=== PATIENT | male | born 1950 | race Caucasian/White ===

== ENCOUNTER → 2020-06-27 | Outpatient (CLI) | payer MEDICARE ==
--- NOTE | 2020-06-29 15:29 | CT ---
EXAMINATION TYPE: CT sinus wo con DATE OF EXAM: 06/27/2020 COMPARISON: None HISTORY: Chronic sinusitis, atypical facial pain, left side facial pain, headaches CT DLP: 654.8 mGycm. Automated Exposure Control for Dose Reduction was Utilized. TECHNIQUE: CT scan of the sinuses is performed without contrast, axial images are obtained, coronal r eformatted images are also reviewed. FINDINGS: There is no bony hyperostosis of the sinus [place] or intrasinus calcifications. The right maxillary sinus demonstrates mucosal thickening and mucosal narrowing at the ostiomeatal co mplex. The left maxillary sinus is well aerated and the left ostiomeatal complex is patent. There is mucosal thickening of the ethmoid air cells. The bilateral sphenoid sinuses are well aerated and sphenoid ostia are patent. The bilateral frontal sinuses are well aerated and the frontoethmoidal recesses are patent. The nasal passage is patent bilaterally. 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 There is paradoxical curvature of the left middle turbinate, and of the right middle turbinate mid to posterior portion, without contacting the nasal passage wall. Visualized portion of mastoid air cells show no abnormal opacification. The globes are grossly symme tric. IMPRESSION: 1. Mucosal thickening of the right maxillary sinus with mucosal narrowing at the right ostiomeatal co mplex. 2. Mucosal thickening of the ethmoid air cells. 3. Leftward deviation of the bony nasal septum with 1 mm left-sided nasal spur. 4. Paradoxical curvature of the middle turbinates.
== END | disposition home or self-care (01) ==
LOC: RADCTMAIN 13:07
PROVIDERS: ATTEND Otolaryngology
DX: J34.89 Other specified disorders of nose and nasal sinuses (principal); J32.2 Chronic ethmoidal sinusitis; J32.0 Chronic maxillary sinusitis; J32.9 Chronic sinusitis, unspecified; Z88.0 Allergy status to penicillin
CPT/HCPCS: 70486

== ENCOUNTER 2021-05-04 13:03 | Emergency (ER) | payer MEDICARE ==
--- NOTE | 2021-05-04 14:13 | ED ---
Wound/Laceration HPI - General Chief Complaint: Wound/Laceration Stated Complaint: lac on 3 fingers Time Seen by Provider: 05/04/21 14:04 Source: patient Mode of arrival: ambulatory Limitations: no limitations - History of Present Illness Initial Comments: 71-year-old female presents to emergency department with a chief complaint of a laceration to right finger. States he was using a tremor when he pressed the wrong button and lacerated his right secondary to fourth digit. Reports tetanus is up-to-date. Reports minimal pain at this time. Reports some bleeding which is since resolved. States he has full range of motion of fingers and denies any paresthesias. Denies any alleviating or aggravating factors. - Related Data Home Medications Medication Instructions Recorded Confirmed LORazepam [Lorazepam] 1 mg PO BID 05/28/14 02/23/16 Levothyroxine Sodium [Synthroid] 50 mcg PO DAILY 05/28/14 02/23/16 Nefazodone HCl 150 mg PO BID 05/28/14 02/23/16 Terazosin [Hytrin] 4 mg PO HS 05/28/14 02/23/16 Valsartan [Diovan] 160 mg PO DAILY 05/28/14 02/23/16 Previous Rx's Medication Instructions Recorded HYDROcodone/APAP 7.5-325MG [[place] 1 tab PO Q6HR PRN #28 tab 02/27/16 7.5-325] Levofloxacin [Levaquin] 750 mg PO Q24H #5 tab 02/27/16 Allergies Allergy/AdvReac Type Severity Reaction Status Date / Time Penicillins Allergy Severe Rash/Hives Verified 05/04/21 13:18 Review of Systems ROS Statement: Those systems with pertinent positive or pertinent negative responses have been documented in the HPI. ROS Other: All systems not noted in ROS Statement are negative. Past Medical History Past Medical History: Cancer, GERD/Reflux, Hearing Disorder / Deafness, Hypertension, Liver Disease, Prostate Disorder, Thyroid Disorder Additional Past Medical History / Comment(s): HEPATITIS, SKIN CANCER, DIVERTICULOSIS History of Any Multi-Drug Resistant Organisms: None Reported Past Surgical History: Hernia Repair Additional Past Surgical History / Comment(s): COLONOSCOPY Past Anesthesia/Blood Transfusion Reactions: No Reported Reaction Past Psychological History: Anxiety, Depression Smoking Status: Never smoker Past Alcohol Use History: None Reported Past Drug Use History: None Reported - Past Family History Father Family Medical History: Cancer Additional Family Medical History / Comment(s): MELENOMA General Exam Limitations: no limitations General appearance: alert, in no apparent distress Head exam: Present: atraumatic, normocephalic, normal inspection Eye exam: Present: normal appearance, PERRL, EOMI Pupils: Present: normal accommodation ENT exam: Present: normal exam, normal oropharynx, mucous membranes moist Neck exam: Present: normal inspection, full ROM. Absent: tenderness, lymphadenopathy Respiratory exam: Present: normal lung sounds bilaterally. Absent: respiratory distress Cardiovascular Exam: Present: regular rate, normal heart sounds. Absent: systolic murmur Extremities exam: Present: full ROM (Full range of motion in all the fingers of right hand), tenderness (Some tenderness at the lacerated site), normal capillary refill, other (Palpable ulnar and radial pulses bilaterally. sensation intact in the right hand.). Absent: normal inspection (Superficial laceration to the right second third and fourth digit), pedal edema, joint swelling, calf tenderness Back exam: Present: normal inspection, full ROM. Absent: tenderness Neurological exam: Present: alert, oriented X3 Psychiatric exam: Present: normal affect, normal mood Skin exam: Present: warm, dry, intact, normal color Course Vital Signs 05/04/21 13:17 Temperature 98.2 F Pulse Rate 96 Respiratory 18 Rate Blood Pressure 127/77 O2 Sat by Pulse 94 L Oximetry Procedures - Laceration Laceration #1 Consent Obtained: verbal consent Indication: laceration Site: hand Size (cm): 1 Description: flap, clean Depth: simple, single layer Sedation/Analgesia: none Anesthetic Used: lidocaine 1% Anesthesia Technique: local infiltration Amount (mls): 1 Pre-repair: irrigated extensively, deep structures intact Type of Sutures: nylon Size of Sutures: 4-0 Number of Sutures: 4 Technique: simple, interrupted Patient Tolerated Procedure: well, no complications Laceration #2 Consent Obtained: verbal consent Indication: laceration Site: hand Size (cm): 2 Description: linear, clean Depth: simple, single layer Sedation/Analgesia: none Anesthetic Used: lidocaine 1% Anesthesia Technique: local infiltration Amount (mls): 2 Pre-repair: irrigated extensively Type of Sutures: nylon Size of Sutures: 4-0 Number of Sutures: 4 Technique: simple, interrupted Patient Tolerated Procedure: well, no complications Laceration #3 Consent Obtained: verbal consent Indication: laceration Site: hand Size (cm): 1 Description: linear, clean Depth: simple, single layer Sedation/Analgesia: none Anesthetic Used: lidocaine 1% Anesthesia Technique: local infiltration Amount (mls): 1 Pre-repair: irrigated extensively, deep structures intact Type of Sutures: nylon Size of Sutures: 4-0 Number of Sutures: 3 Technique: simple, interrupted Patient Tolerated Procedure: well, no complications Medical Decision Making - Medical Decision Making 71-year-old male presents to the emergency department with a chief complaint of laceration. He has multiple lacerations and hands which were repaired with a to thomas of 12 sutures. Patient started procedure well. Laceration sites were thoroughly irrigated with saline and Betadine. Tetanus is updated. Patient was advised to return for suture removal. He is otherwise neurovascularly intact in the right hand. Return parameters were thoroughly discussed with patient is understanding and agreeable. Case discussed with physician. Disposition Clinical Impression: Laceration of multiple sites of hand and fingers Disposition: HOME SELF-CARE Condition: Stable Instructions (If sedation given, give patient instructions): Care For Your Stitches (ED), Laceration (DC) Additional Instructions: Please return to the emergency room in 8days to have sutures removed. Please watch for any signs of infection which may include increased pain, swelling, redness, fever or chills. Please return to emergency room for any signs of infection do occur. Please use clean soap and water over the area to prevent scabbing over your stitches. Please leave wound covered for the first 24-48 hours and then leave wound open to air. Please return to the emergency room for any other concerns. Is patient prescribed a controlled substance at d/c from ED?: No Referrals: Jose Martin Vale Jr, DO [Primary Care Provider] - 1-2 days Time of Disposition: 15:21
[2021-05-04] MEDS ORDERED: LIDOCAINE 1% INJ 10MG/ML (20 ML MDV) SQ ONE (14:25)
[2021-05-04] MEDS ORDERED: DIPH,PERTUS(ACELL)TETVAC-LF 0.5 ML VIAL IM ONE (14:26)
[2021-05-04 21:58] VITALS: BP 115/78; PULSE 91; RESP 16; TEMP 98.1
== END 2021-05-04 15:30 | disposition home or self-care (01) ==
LOC: EC 13:03
DX: S61.210A Laceration without foreign body of right index finger without damage to nail, initial encounter (principal); S61.212A Laceration without foreign body of right middle finger without damage to nail, initial encounter; S61.214A Laceration without foreign body of right ring finger without damage to nail, initial encounter; Z23 Encounter for immunization; I10 Essential (primary) hypertension; K21.9 Gastro-esophageal reflux disease without esophagitis; F41.9 Anxiety disorder, unspecified; F32.9 Major depressive disorder, single episode, unspecified; Z85.828 Personal history of other malignant neoplasm of skin; Z88.0 Allergy status to penicillin; W26.8XXA Contact with other sharp object(s), not elsewhere classified, initial encounter
CPT/HCPCS: 90715; 99282; 90471; 12002; J2001

== ENCOUNTER 2022-05-02 23:50 | Emergency (ER) | payer MEDICARE ==
[2022-05-03] MEDS ORDERED: ACETAMINOPHEN TAB 500 MG TAB PO STA ×2 (00:15→00:27)
[2022-05-03] MEDS ORDERED: SODIUM CHLORIDE 0.9% 1,000 ML IV STA (00:15)
[2022-05-03] MEDS ORDERED: SODIUM CHLORIDE 0.9% 500 ML 500 ML IV STA (00:27)
[2022-05-03 00:44] LABS: Basophils % (A) 1 %; Eosinophils # (A) 0.1 k/uL (0-0.7); Eosinophils % (A) 2 %; HCT 41.3 % (39.0-53.0); HGB 14.6 gm/dL (13.0-17.5); Lymphocytes # (A) 1.5 k/uL (1.0-4.8); Lymphocytes % (A) 31 %; MCH 33.3 pg (25.0-35.0); MCHC 35.3 g/dL (31.0-37.0); MCV 94.5 fL (80.0-100.0); Mean Platelet Volume 7.8; Monocytes # (A) 0.3 k/uL (0-1.0); Monocytes % (A) 7 %; Neutrophils # (A) 2.8 k/uL (1.3-7.7); Neutrophils % (A) 57 %; Platelet Count 191 k/uL (150-450); RBC 4.36 m/uL (4.30-5.90); RDW 12.7 % (11.5-15.5); WBC 4.9 k/uL (3.8-10.6)
--- NOTE | 2022-05-03 00:44 | ED ---
General Adult HPI - General Source: patient, EMS Mode of arrival: EMS Limitations: no limitations <Fernando Wagner - Last Filed: 05/03/22 00:31> <Mike Keating - Last Filed: 05/03/22 05:30> - General Chief complaint: Recheck/Abnormal Lab/Rx Stated complaint: headache Time Seen by Provider: 05/03/22 00:02 - History of Present Illness Initial comments: This is a pleasant 72-year-old male who presents to emergency by with multiple complaints. Patient states he has generalized body aching. He has not been sle eping well. He has had several weeks of right-sided abdominal pain.Patient has a history of cancer, hypertension, liver disease, acid reflux, diverticulosis, previously had a Marsha fundoplication. Patient states he is also having headaches and body aches. She denies any fever. Patient states he had his medications switched him. Patient states he was taken off nefazodone quite some time ago and relates a lot of symptoms from the stopping that medication. Patient was then on and was switched to Xanax. He thought the Xanax was making him sick. Patient states he saw his regular physician last week and was taken off of his prostate medications. Had also been on an antidepressant which she stopped. Sounds like the symptoms were going on for quite some time aside from the body aches. no fever or chills, no changes in vision or hearing, no sore throat or difficulty with speech, no neck pain, no chest pain or shortness of breath, no nausea or vomiting, no changes in urination or bowel movements, no numbness or tingling, no extremity pain, no skin rashes or lesions. (Fernando Wagner) - Related Data Home Medications Medication Instructions Recorded Confirmed LORazepam [Lorazepam] 1 mg PO BID 05/28/14 02/23/16 Levothyroxine Sodium [Synthroid] 50 mcg PO DAILY 05/28/14 02/23/16 Nefazodone HCl 150 mg PO BID 05/28/14 02/23/16 Terazosin [Hytrin] 4 mg PO HS 05/28/14 02/23/16 Valsartan [Diovan] 160 mg PO DAILY 05/28/14 02/23/16 Previous Rx's Medication Instructions Recorded HYDROcodone/APAP 7.5-325MG [[place] 1 tab PO Q6HR PRN #28 tab 02/27/16 7.5-325] Levofloxacin [Levaquin] 750 mg PO Q24H #5 tab 02/27/16 LORazepam [Ativan] 1 mg PO BID 3 Days #6 tab 05/03/22 Allergies Allergy/AdvReac Type Severity Reaction Status Date / Time Penicillins Allergy Severe Rash/Hives Verified 05/04/21 13:18 Review of Systems ROS Other: All systems not noted in ROS Statement are negative. <Fernando Wagner - Last Filed: 05/03/22 00:31> ROS Other: All systems not noted in ROS Statement are negative. <Mike Keating - Last Filed: 05/03/22 05:30> ROS Statement: Those systems with pertinent positive or pertinent negative responses have been documented in the HPI. Past Medical History Past Medical History: Cancer, GERD/Reflux, Hearing Disorder / Deafness, Hypertension, Liver Disease, Prostate Disorder, Thyroid Disorder Additional Past Medical History / Comment(s): HEPATITIS, SKIN CANCER, DIVERTICULOSIS History of Any Multi-Drug Resistant Organisms: None Reported Past Surgical History: Hernia Repair Additional Past Surgical History / Comment(s): COLONOSCOPY Past Anesthesia/Blood Transfusion Reactions: No Reported Reaction Past Psychological History: Anxiety, Depression Smoking Status: Never smoker Past Alcohol Use History: None Reported Past Drug Use History: None Reported - Past Family History Father Family Medical History: Cancer Additional Family Medical History / Comment(s): MELENOMA <Fernando Wagner - Last Filed: 05/03/22 00:31> General Exam Limitations: no limitations General appearance: alert, in no apparent distress Head exam: Present: atraumatic, normocephalic, normal inspection Eye exam: Present: normal appearance, PERRL, EOMI. Absent: scleral icterus, conjunctival injection, periorbital swelling ENT exam: Present: normal exam, normal oropharynx, mucous membranes moist. Absent: TM's normal bilaterally, normal external ear exam Neck exam: Present: normal inspection, full ROM. Absent: tenderness, meningismus, lymphadenopathy Respiratory exam: Present: normal lung sounds bilaterally. Absent: respiratory distress, wheezes, rales, rhonchi, stridor Cardiovascular Exam: Present: regular rate, normal rhythm, normal heart sounds. Absent: systolic murmur, diastolic murmur, rubs, gallop, clicks GI/Abdominal exam: Present: soft, tenderness (Mild right-sided abdominal tenderness with no guarding or rebound), normal bowel sounds. Absent: distended, guarding, rebound, rigid Extremities exam: Present: normal inspection, full ROM, normal capillary refill. Absent: tenderness, pedal edema, joint swelling, calf tenderness Back exam: Present: normal inspection Neurological exam: Present: alert, oriented X3, CN II-XII intact, normal gait. Absent: altered, abnormal gait, motor sensory deficit, reflexes normal Psychiatric exam: Present: normal affect, anxious. Absent: normal mood, depressed, agitated, flat affect, manic, homicidal ideation, suicidal ideation Skin exam: Present: warm, dry, intact, normal color. Absent: rash, cyanosis, diaphoretic, erythema, petechiae, pallor, mottled <Fernando Wagner - Last Filed: 05/03/22 00:31> - General Exam Comments Initial Comments: Noted be hypertensive. Vital signs stable otherwise. (Fernando Wagner) Course Vital Signs 05/03/22 05/03/22 00:01 04:00 Temperature 98.2 F 98.6 F Pulse Rate 70 88 Respiratory 18 20 Rate Blood Pressure 188/93 169/79 O2 Sat by Pulse 98 97 Oximetry EKG Findings - EKG Comments: EKG Findings:: EKG done at 4:40 AM and read by the ED attending physician reveals sinus rhythm at a rate of 62. Normal axis. Normal intervals. No acute ST or T-wave changes. <Fernando aWgner - Last Filed: 05/03/22 00:31> Medical Decision Making - Lab Data Result diagrams: 05/03/22 00:32 05/03/22 00:32 <Mike Keating - Last Filed: 05/03/22 05:30> - Medical Decision Making Patient reevaluated, alert and oriented, resting comfortably, believes that he had had a panic attack and was recently taken off of all of his anxiety medication. Patient's workup in the emergency Department is unremarkable laboratory testing is within normal limits. He should follow with his primary care physician. Stable for discharge. (Mike Keating) - Lab Data Lab Results 05/03/22 05/03/22 05/03/22 Range/Units 00:32 00:32 00:32 WBC 4.9 (3.8-10.6) k/uL RBC 4.36 (4.30-5.90) m/uL Hgb 14.6 (13.0-17.5) gm/dL Hct 41.3 (39.0-53.0) % MCV 94.5 (80.0-100.0) fL MCH 33.3 (25.0-35.0) pg MCHC 35.3 (31.0-37.0) g/dL RDW 12.7 (11.5-15.5) % Plt Count 191 (150-450) k/uL MPV 7.8 Neutrophils % 57 % Lymphocytes % 31 % Monocytes % 7 % Eosinophils % 2 % Basophils % 1 % Neutrophils # 2.8 (1.3-7.7) k/uL Lymphocytes # 1.5 (1.0-4.8) k/uL Monocytes # 0.3 (0-1.0) k/uL Eosinophils # 0.1 (0-0.7) k/uL Basophils # 0.0 (0-0.2) k/uL PT 10.8 (9.0-12.0) sec INR 1.0 (<1.2) APTT 23.8 (22.0-30.0) sec Sodium (137-145) mmol/L Potassium (3.5-5.1) mmol/L Chloride (98-107) mmol/L Carbon Dioxide (22-30) mmol/L Anion Gap mmol/L BUN (9-20) mg/dL Creatinine (0.66-1.25) mg/dL Est GFR (CKD-EPI)AfAm (>60 ml/min/1.73 sqM) Est GFR (CKD-EPI)NonAf (>60 ml/min/1.73 sqM) Glucose (74-99) mg/dL Calcium (8.4-10.2) mg/dL Phosphorus (2.5-4.5) mg/dL Magnesium (1.6-2.3) mg/dL Total Bilirubin (0.2-1.3) mg/dL AST (17-59) U/L ALT (4-49) U/L Alkaline Phosphatase (38-126) U/L Troponin I (0.000-0.034) ng/mL Total Protein (6.3-8.2) g/dL Albumin (3.5-5.0) g/dL Lipase (23-300) U/L TSH (0.465-4.680) mIU/L Urine Color Colorless Urine Appearance Clear (Clear) Urine pH 7.0 (5.0-8.0) Ur Specific Erm[place] 1.004 (1.001-1.035) Urine Protein Negative (Negative) Urine Glucose (UA) Negative (Negative) Urine Ketones Negative (Negative) Urine Blood Negative (Negative) Urine Nitrite Negative (Negative) Urine Bilirubin Negative (Negative) Urine Urobilinogen <2.0 (<2.0) mg/dL Ur Leukocyte Esterase Negative (Negative) Coronavirus (PCR) (Not Detectd) Influenza Type A RNA (Not Detectd) Influenza Type B (PCR) (Not Detectd) 05/03/22 05/03/22 05/03/22 Range/Units 00:32 00:32 00:32 WBC (3.8-10.6) k/uL RBC (4.30-5.90) m/uL Hgb (13.0-17.5) gm/dL Hct (39.0-53.0) % MCV (80.0-100.0) fL MCH (25.0-35.0) pg MCHC (31.0-37.0) g/dL RDW (11.5-15.5) % Plt Count (150-450) k/uL MPV Neutrophils % % Lymphocytes % % Monocytes % % Eosinophils % % Basophils % % Neutrophils # (1.3-7.7) k/uL Lymphocytes # (1.0-4.8) k/uL Monocytes # (0-1.0) k/uL Eosinophils # (0-0.7) k/uL Basophils # (0-0.2) k/uL PT (9.0-12.0) sec INR (<1.2) APTT (22.0-30.0) sec Sodium 137 (137-145) mmol/L Potassium 4.2 (3.5-5.1) mmol/L Chloride 104 (98-107) mmol/L Carbon Dioxide 26 (22-30) mmol/L Anion Gap 7 mmol/L BUN 15 (9-20) mg/dL Creatinine 1.07 (0.66-1.25) mg/dL Est GFR (CKD-EPI)AfAm 80 (>60 ml/min/1.73 sqM) Est GFR (CKD-EPI)NonAf 69 (>60 ml/min/1.73 sqM) Glucose 107 H (74-99) mg/dL Calcium 9.1 (8.4-10.2) mg/dL Phosphorus 4.1 (2.5-4.5) mg/dL Magnesium 1.9 (1.6-2.3) mg/dL Total Bilirubin 0.4 (0.2-1.3) mg/dL AST 23 (17-59) U/L ALT 21 (4-49) U/L Alkaline Phosphatase 47 (38-126) U/L Troponin I <0.012 (0.000-0.034) ng/mL Total Protein 6.8 (6.3-8.2) g/dL Albumin 4.2 (3.5-5.0) g/dL Lipase 102 (23-300) U/L TSH 3.990 (0.465-4.680) mIU/L Urine Color Urine Appearance (Clear) Urine pH (5.0-8.0) Ur Specific [place] (1.001-1.035) Urine Protein (Negative) Urine Glucose (UA) (Negative) Urine Ketones (Negative) Urine Blood (Negative) Urine Nitrite (Negative) Urine Bilirubin (Negative) Urine Urobilinogen (<2.0) mg/dL Ur Leukocyte Esterase (Negative) Coronavirus (PCR) (Not Detectd) Influenza Type A RNA Not Detected (Not Detectd) Influenza Type B (PCR) Not Detected (Not Detectd) 05/03/22 Range/Units 00:32 WBC (3.8-10.6) k/uL RBC (4.30-5.90) m/uL Hgb (13.0-17.5) gm/dL Hct (39.0-53.0) % MCV (80.0-100.0) fL MCH (25.0-35.0) pg MCHC (31.0-37.0) g/dL RDW (11.5-15.5) % Plt Count (150-450) k/uL MPV Neutrophils % % Lymphocytes % % Monocytes % % Eosinophils % % Basophils % % Neutrophils # (1.3-7.7) k/uL Lymphocytes # (1.0-4.8) k/uL Monocytes # (0-1.0) k/uL Eosinophils # (0-0.7) k/uL Basophils # (0-0.2) k/uL PT (9.0-12.0) sec INR (<1.2) APTT (22.0-30.0) sec Sodium (137-145) mmol/L Potassium (3.5-5.1) mmol/L Chloride (98-107) mmol/L Carbon Dioxide (22-30) mmol/L Anion Gap mmol/L BUN (9-20) mg/dL Creatinine (0.66-1.25) mg/dL Est GFR (CKD-EPI)AfAm (>60 ml/min/1.73 sqM) Est GFR (CKD-EPI)NonAf (>60 ml/min/1.73 sqM) Glucose (74-99) mg/dL Calcium (8.4-10.2) mg/dL Phosphorus (2.5-4.5) mg/dL Magnesium (1.6-2.3) mg/dL Total Bilirubin (0.2-1.3) mg/dL AST (17-59) U/L ALT (4-49) U/L Alkaline Phosphatase (38-126) U/L Troponin I (0.000-0.034) ng/mL Total Protein (6.3-8.2) g/dL Albumin (3.5-5.0) g/dL Lipase (23-300) U/L TSH (0.465-4.680) mIU/L Urine Color Urine Appearance (Clear) Urine pH (5.0-8.0) Ur Specific [place] (1.001-1.035) Urine Protein (Negative) Urine Glucose (UA) (Negative) Urine Ketones (Negative) Urine Blood (Negative) Urine Nitrite (Negative) Urine Bilirubin (Negative) Urine Urobilinogen (<2.0) mg/dL Ur Leukocyte Esterase (Negative) Coronavirus (PCR) Not Detected (Not Detectd) Influenza Type A RNA (Not Detectd) Influenza Type B (PCR) (Not Detectd) Disposition <Fernando Wagner - Last Filed: 05/03/22 00:31> Is patient prescribed a controlled substance at d/c from ED?: No Time of Disposition: 05:22 <Mike Keating - Last Filed: 05/03/22 05:30> Clinical Impression: Anxiety Disposition: HOME SELF-CARE Condition: Fair Instructions (If sedation given, give patient instructions): Anxiety (ED) Prescriptions: LORazepam [Ativan] 1 mg PO BID 3 Days #6 tab Referrals: Jose Martin Vale Jr, [Primary Care Provider] - 1-2 days
[2022-05-03 00:59] LABS: Albumin 4.2 g/dL (3.5-5.0); Calcium 9.1 mg/dL (8.4-10.2); Magnesium 1.9 mg/dL (1.6-2.3); Phosphorus 4.1 mg/dL (2.5-4.5); Potassium 4.2 mmol/L (3.5-5.1); Total Bilirubin 0.4 mg/dL (0.2-1.3); Total Protein 6.8 g/dL (6.3-8.2)
[2022-05-03 01:08] LABS: Appearance,Urine Clear (Clear); Bilirubin,Urine Negative (Negative); Blood,Urine Negative (Negative); Color,Urine Colorless; Glucose,Urine (UA) Negative (Negative); Ketones,Urine Negative (Negative); Leukocyte Esterase,Urine Negative (Negative); Nitrite,Urine Negative (Negative); Partial Thromboplastin Time 23.8 sec (22.0-30.0); Protein,Urine Negative (Negative); Prothrombin Time 10.8 sec (9.0-12.0); Specific Gravity,Urine 1.004 (1.001-1.035); Urobilinogen,Urine <2.0 mg/dL (<2.0)
[2022-05-03 04:10] VITALS: RESP 20
--- NOTE | 2022-05-03 05:30 | CT ---
EXAM: CT Abdomen and Pelvis With Intravenous Contrast CLINICAL HISTORY: ITS.REASON CT Reason: Right-sided abdominal pain TECHNIQUE: Axial computed tomography images of the abdomen and pelvis with intravenous contrast. CTDI is 23.97 mGy and DLP is 1207 mGy-cm. This CT exam was performed using one or more of the following dose reduction techniques: automated exposure control, adjustment of the mA and/or kV according to patient size, and/or use of iterative reconstruction technique. COMPARISON: 09/26/2015 FINDINGS: Lung bases: Unremarkable. No mass. No consolidation. ABDOMEN: Liver: Multiple simple cysts in the liver measuring up to 3.5 cm in the right hepatic lobe. Hepatic steatosis. No mass. Gallbladder and bile ducts: Unremarkable. No calcified stones. No ductal dilation. Pancreas: Unremarkable. No mass. No ductal dilation. Spleen: Unremarkable. No splenomegaly. Adrenals: Unremarkable. No mass. Kidneys and ureters: Unremarkable. No solid mass. No hydronephrosis. Stomach and bowel: Postsurgical changes with prior colectomy and application. Superior displacement of the cecum into the right upper quadrant. No obstruction. No mucosal thickening. PELVIS: Appendix: Not visualized. Bladder: Unremarkable. No mass. Reproductive: Unremarkable as visualized. ABDOMEN and PELVIS: Intraperitoneal space: Unremarkable. No free air. No significant fluid collection. Bones/joints: No acute fracture. No dislocation. Soft tissues: Unremarkable. Vasculature: Unremarkable. No abdominal aortic aneurysm. Lymph nodes: Unremarkable. No enlarged lymph nodes. IMPRESSION: 1. No acute intra-abdominal process. 2. Hepatic steatosis. Multiple simple cysts in the liver measuring up to 3.5 cm.
[2022-05-03 05:58] VITALS: BP 165/86; PULSE 84; TEMP 98.5
--- NOTE | 2022-05-03 06:05 | XR ---
EXAM: XR Abdomen, 2 Views and XR Chest, 1 View CLINICAL HISTORY: ITS.REASON XR Reason: Abdominal pain TECHNIQUE: Frontal view of the chest, frontal view of the abdomen/pelvis and upright or decubitus view of the abdomen. COMPARISON: No relevant prior studies available. FINDINGS: Lungs: Unremarkable. No consolidation. Pleural space: Unremarkable. No pneumothorax. Heart: Unremarkable. No cardiomegaly. Mediastinum: Unremarkable. Intraperitoneal space: No free air. Gastrointestinal tract: Scattered gas in colon and small bowel without evidence of obstruction. Organs: No abnormal mass-effect or organomegaly. Bones/joints: Unremarkable. IMPRESSION: No acute findings in the chest, abdomen or pelvis.
== END 2022-05-03 06:25 | disposition home or self-care (01) ==
LOC: EC 23:50
DX: F41.9 Anxiety disorder, unspecified (principal); R51.9 Headache, unspecified; I10 Essential (primary) hypertension; E07.9 Disorder of thyroid, unspecified; Z79.899 Other long term (current) drug therapy; Z79.890 Hormone replacement therapy; Z20.822 Contact with and (suspected) exposure to COVID-19; Z88.0 Allergy status to penicillin
CPT/HCPCS: 36415; 93005; 80053; 83690; 83735; 84100; 84443; 84484; 85025; 85610; 85730; 81003; 87502; 87635; 74022; 74177; 99284; 96360; Q9967

== ENCOUNTER 2022-10-14 07:38 | Day surgery (SDC) | payer MEDICARE ==
[2022-10-12 13:18] VITALS: BMI 27.6
[~2022-10-14 07:38] MED LIST: LACTATED RINGERS 1,000 ML IV SCH; LIDOCAINE 1% (10MG/ML) FOR IV START INTRADERMA PRN
[2022-10-14] MEDS ORDERED: LACTATED RINGERS 1,000 ML IV ONE (08:30)
[2022-10-14 08:38] VITALS: TEMP 97
[2022-10-14] MEDS ORDERED: PROPOFOL 10 MG/ML 20 ML VIAL IV ONE (08:51)
--- NOTE | 2022-10-14 08:52 | P.GSHP ---
History of Present Illness H&P Date: 10/14/22 Chief Complaint: History of diverticulitis This a 72-year-old male with previous history of diverticula is. Patient presents today for colonoscopy. Past Medical History Past Medical History: Cancer, GERD/Reflux, Hearing Disorder / Deafness, Hypertension, Liver Disease, Osteoarthritis (OA), Prostate Disorder, Thyroid Disorder Additional Past Medical History / Comment(s): HEPATITIS (WHILE IN THE SERVICE), SKIN CANCER, DIVERTICULITIS, NECK PAIN, BPH, [place]., HAVING ABD PAIN WHEN HE WALKS. History of Any Multi-Drug Resistant Organisms: None Reported Past Surgical History: Bowel Resection, Hernia Repair Additional Past Surgical History / Comment(s): COLONOSCOPY, HIATAL HERNIA REPAIR, 8 INCHES BOWEL REMOVED FOR DIVERTICULITIS (2016) Past Anesthesia/Blood Transfusion Reactions: No Reported Reaction Past Psychological History: Anxiety, Depression Smoking Status: Former smoker Past Alcohol Use History: None Reported Additional Past Alcohol Use History / Comment(s): QUIT SMOKING 40 PLUS YEARS AGO. Past Drug Use History: None Reported Additional Drug Use History / Comment(s): OCCASIONAL CBD GUMMY FOR ARTHRITIS. - Past Family History Mother Family Medical History: Cancer Additional Family Medical History / Comment(s): BOWEL CANCER Sister(s) Family Medical History: Cancer Additional Family Medical History / Comment(s): SKIN CANCER Father Family Medical History: Cancer Additional Family Medical History / Comment(s): MELENOMA Medications and Allergies Home Medications Medication Instructions Recorded Confirmed Type LORazepam [Lorazepam] 0.5 mg PO BID 05/28/14 10/14/22 History Levothyroxine Sodium [Synthroid] 50 mcg PO DAILY 05/28/14 10/14/22 History Terazosin [Hytrin] 2 mg PO HS 05/28/14 10/14/22 History Acetaminophen [Tylenol Extra 1,000 mg PO BID PRN 10/12/22 10/14/22 History Strength] Cbd Gummy 1 dose PO HS PRN 10/12/22 10/14/22 History Esomeprazole Magnesium [NexIUM 20 mg PO DAILY PRN 10/12/22 10/14/22 History 24Hr] Mylanta Max Strength 1 dose PO DIRECTED PRN 10/12/22 10/14/22 History Sertraline [Zoloft] 125 mg PO DAILY 10/12/22 10/14/22 History amLODIPine [Norvasc] 5 mg PO DAILY 10/12/22 10/14/22 History Allergies Allergy/AdvReac Type Severity Reaction Status Date / Time Penicillins Allergy Severe Rash/Hives Verified 10/14/22 08:17 Surgical - Exam Vital Signs Temp Pulse Resp BP Pulse Ox 97 F L 85 17 143/81 95 10/14/22 08:30 10/14/22 08:30 10/14/22 08:30 10/14/22 08:30 10/14/22 08:30 - General well developed, well nourished, no distress - Eyes PERRL - ENT normal pinna - Neck no masses - Respiratory normal expansion - Cardiovascular Rhythm: regular - Abdomen Abdomen: soft, non tender Assessment and Plan Assessment: History of diverticulitis. We'll perform colonoscopy
--- NOTE | 2022-10-14 09:04 | P.OP ---
Date of Procedure: 10/14/22 Preoperative Diagnosis: History of diverticulitis Postoperative Diagnosis: Mild diverticulosis Procedure(s) Performed: Colonoscopy Anesthesia: MAC Surgeon: Bharath Nye Pathology: none sent Condition: stable Disposition: PACU Description of Procedure: The patient's placed on the endoscopy table in the lateral position. He received IV sedation. Digital rectal exam was performed. This revealed no abnormalities. Flexible colonoscope was then placed patient anus and passed throughout the entire colon. The ileocecal valve was visualized. The cecum, ascending and transverse colon appeared normal. In the descending and; there is some minimal diverticular changes. The scope was then brought back the rectum and this was normal. Scope was withdrawn for patient.
[2022-10-14 09:28] VITALS: RESP 16
[2022-10-14 09:29] VITALS: BP 148/87; PULSE 67
== END 2022-10-14 09:52 | disposition home or self-care (01) ==
LOC: ORWHC2ENDO 07:38
PROVIDERS: ATTEND Surgery
DX: K57.30 Diverticulosis of large intestine without perforation or abscess without bleeding (principal); I10 Essential (primary) hypertension; K21.9 Gastro-esophageal reflux disease without esophagitis; M19.90 Unspecified osteoarthritis, unspecified site; F41.9 Anxiety disorder, unspecified; F32.9 Major depressive disorder, single episode, unspecified; Z87.891 Personal history of nicotine dependence; Z80.8 Family history of malignant neoplasm of other organs or systems; Z85.828 Personal history of other malignant neoplasm of skin; Z79.899 Other long term (current) drug therapy; Z88.0 Allergy status to penicillin
CPT/HCPCS: 45378; J2704

== ENCOUNTER → 2022-11-02 | Outpatient (CLI) | payer MEDICARE ==
--- NOTE | 2022-11-02 09:17 | CT ---
EXAMINATION TYPE: CT abdomen pelvis w con DATE OF EXAM: 11/02/2022 COMPARISON: 05/03/2022 HISTORY: abd pain CT DLP: 1510 mGycm CONTRAST: CT scan of the abdomen and pelvis is performed with Oral Contrast and with IV Contrast, patient injec leigh with 70 mL of Isovue 300. FINDINGS: LUNG BASES-: No visible nodule. No infiltrate. LIVER/GB: No calcified gallstones. Hepatic cysts are redemonstrated. Biliary tree is of normal ivett krista. PANCREAS: No inflammation. No distinct mass. SPLEEN: No splenic enlargement. No lesion seen. ADRENALS: No nodule. No thickening. KIDNEYS/BLADDER: No hydronephrosis. No nephrolithiasis. No distinct renal mass. Urinary bladder g rossly unremarkable. BOWEL: Normal appendix. Normal bowel caliber. No inflammation. GENITAL ORGANS: No gross abnormality. LYMPH NODES: No greater than 1cm abdominal or pelvic lymph nodes are appreciated. AORTA: No significant abnormality. OSSEOUS STRUCTURES: No significant abnormality is seen. OTHER: No significant additional abnormality is seen. IMPRESSION: 1. No acute intra-abdominal or intrapelvic process.
== END | disposition home or self-care (01) ==
LOC: RADCTMAIN 06:44
PROVIDERS: ATTEND Surgery
DX: K57.32 Diverticulitis of large intestine without perforation or abscess without bleeding (principal); R10.9 Unspecified abdominal pain
CPT/HCPCS: 82565; 84520; 74177; 36415; Q9967

== ENCOUNTER 2022-11-04 09:17 | Day surgery (SDC) | payer MEDICARE ==
[2022-11-04 09:57] VITALS: RESP 16; TEMP 97
[2022-11-04] MEDS: LACTATED RINGERS 1,000 ML IV SCH ×2 (10:04→10:37)
[2022-11-04] MEDS ORDERED: PROPOFOL 10 MG/ML 20 ML VIAL IV ONE (10:38)
[2022-11-04] MEDS ORDERED: LIDOCAINE 2% INJ 20 MG/ML (2 ML VIAL) ONE (10:38)
--- NOTE | 2022-11-04 10:48 | P.OP ---
Date of Procedure: 11/04/22 Preoperative Diagnosis: GERD Postoperative Diagnosis: Antral gastritis No evidence of hiatal hernia No evidence of esophagitis Procedure(s) Performed: EGD Anesthesia: MAC Surgeon: Bharath Nye Pathology: other (Antrum) Condition: stable Disposition: PACU Description of Procedure: The patient's placed on the endoscopy table in the lateral position. He received IV sedation. The gastroscope placed oropharynx passed in the esophagus into the stomach. Scope was then placed through the pylorus. The first and second portion of the duodenum appeared normal. The scope was then brought back and the antrum this was mildly inflamed. A biopsies performed. The scope was then retroflexed and the remainder of the stomach appeared normal. The patient had a previous fundoplication wrap. This appeared to be in appropriate position. There is no significant hiatal hernia. The GE junction was at 40 cm per the distal esophagus appeared normal. The proximal esophagus appeared normal. Scope was withdrawn for patient.
[2022-11-04 11:17] VITALS: BP 155/98; PULSE 82
== END 2022-11-04 11:34 | disposition home or self-care (01) ==
LOC: ORWHC2ENDO 09:17
PROVIDERS: ATTEND Surgery
DX: K29.50 Unspecified chronic gastritis without bleeding (principal); I10 Essential (primary) hypertension; E07.9 Disorder of thyroid, unspecified; N42.9 Disorder of prostate, unspecified; K76.9 Liver disease, unspecified; H91.90 Unspecified hearing loss, unspecified ear; F41.8 Other specified anxiety disorders; K75.9 Inflammatory liver disease, unspecified; Z98.890 Other specified postprocedural states; Z85.828 Personal history of other malignant neoplasm of skin; Z80.8 Family history of malignant neoplasm of other organs or systems; Z87.891 Personal history of nicotine dependence; Z88.0 Allergy status to penicillin; Z79.899 Other long term (current) drug therapy
CPT/HCPCS: 88305; 43239; J2704; J2001

== ENCOUNTER → 2023-04-15 | Outpatient (CLI) | payer MEDICARE ==
--- NOTE | 2023-04-16 09:48 | MR ---
EXAMINATION TYPE: MR cervical spine wo con DATE OF EXAM: 04/15/2023 INDICATION: Patient age:Male; 73 years old; Reason for study: M47.26 SPONDYLOSIS WITH RADICULOPATHY, LUMBAR RIZWAN. Neck pain and numbness into bot h arms COMPARISON: Radiograph 03/29/2023. TECHNIQUE: Multi planar, multi sequence imaging was performed utilizing: T1-weighted, T2-weighted, an d turbo inversion recovery imaging of the cervical spine. IV Contrast: None FINDINGS: Alignment: The cervical vertebral bodies have preserved heights. There is straightening of the alignm ent with increased kyphosis at C5-C6. Bones: Bone signal Modic endplate changes most pronounced at C5-C6 anteriorly. Scattered disc space n arrowing at C5-C6 and C6-C7. No abnormal bone marrow edema on inversion recovery sequences. Cord: The spinal cord is unremarkable with regards to their signal intensity and morphology. Discs: Multilevel disc desiccation is present. C2-C3: No significant disc pathology. The spinal canal is patent. No neural foraminal stenosis. C3-C4: No significant disc pathology. The spinal canal is patent. Bilateral facet and uncovertebral joint arthropathy are present with mild bilateral neural foraminal stenosis. C4-C5: A disc osteophyte complex is present which minimally narrows the ventral subarachnoid space. Bilateral facet and uncovertebral joint arthropathy are present with mild bilateral neural foraminal stenosis. C5-C6: A disc osteophyte complex is present with mild to moderate spinal canal stenosis. Bilateral f acet and uncovertebral joint arthropathy are present with moderate to severe bilateral neural foramin al stenosis. C6-C7: A disc osteophyte complex is present which minimally narrows the ventral subarachnoid space. Bilateral facet and uncovertebral joint arthropathy are present with moderate to severe left mild ri ght neural foraminal stenosis. C7-T1: No significant disc pathology. The spinal canal is patent. No neural foraminal stenosis. Other: None. IMPRESSION: 1. No evidence for disc herniation or significant spinal canal stenosis. 2. Disc degeneration changes worse at C5-C6 and C6-C7 with moderate to severe bilateral C5-C6 and mod erate to severe left C6-C7 neural foraminal stenosis.
== END | disposition home or self-care (01) ==
LOC: RADMRIMAIN 16:51
PROVIDERS: ATTEND Nurse Practitioner Family
DX: M99.71 Connective tissue and disc stenosis of intervertebral foramina of cervical region (principal); M47.26 Other spondylosis with radiculopathy, lumbar region; R20.2 Paresthesia of skin
CPT/HCPCS: 72141

== ENCOUNTER → 2023-07-06 | Outpatient (CLI) | payer MEDICARE ==
[2023-07-06 13:41] VITALS: BP 118/77; PULSE 88; RESP 15; TEMP 98.3
--- NOTE | 2023-07-06 15:17 | P.PAINPG ---
Objective - Vital Signs Vital signs: Intake & Output 07/05/23 07/06/23 07/06/23 18:59 06:59 18:59 Weight 86.183 kg PQRS Measure Charge Sheet Comment: HISTORY OF PRESENT ILLNESS: 73 yr old male w at side as a referral from Dr Griffiths presents today w severe and chronic neck pain x 2 yrs secondary to DDD, spondylosis and facet arthropathy without myelopathy for evaluation. Pt states pain level is provoked at 9/10 in intensity, constant, localized in the lower cervical spine, sharp in character w shooting pain towards the BUEs. Pain is alleviated by Pt x 6 wks in 2021, chiropractic treatments weekly x 6 wks in 2021, physician guided stretches and exercises daily since Jun 2022, heat, topical, repositioning and rest. Pain is provoked by hyperextension, lifting. Oswestry axial pain score at 11. PMH: OA, Colon CA, GERD, Hearing Disorder, HTN, Liver Disease, OA, BPH, Hypothyroid Disorder, Hepatitis while in service, Diverticulitis, MDD/ Anxiety PSH: Hiatal Hernia Repair (2021), Bowel Resection, Colonoscopy SH: Hx of 20 pack/ yr tobacco use, No ETOH abuse, Cannabis for OA FH: Mo- Bowel CA. Fa- Melanoma. Sister- Skin CA. All: See list Meds: See list REVIEW OF ORGAN SYSTEMS: CONSTITUTIONAL: No fevers or chills. No recent weight loss. NEUROLOGICAL: + numbness and tingling along the distal extremities. No seizure disorders or headaches. MUSCULOSKELETAL: + pain PSYCHIATRIC: Denies current depression or suicidal thoughts. Physical Examinations : Constitutional : Cooperative , not in acute distress . Neurologic : Cranial nerve II to XII intact. No focal mack rological deficits. Psychiatric : alert & oriented x 3. Matching mood & appropriate affect. Judgment & insight intact. Musculoskeletal : Cervical Spine Motor strength in the deltoid and biceps: Normal right side. Normal Left side Motor strength biceps and the wrist extensors: Normal right side . Normal left side Motor strength in the triceps muscle: Normal right side. Normal left side Deep tendon reflexes: Normal at the biceps. Normal at Brachioradialis. Normal at triceps Vertebral body tenderness to deep palpation over C6 Cervical facet loading test: positive bilaterally over BL C6-C7 Spurling test: positive bilaterally Neck distraction test: positive bilaterally Amanda sign: positive bilaterally Lumbar spine Motor strength lower extremities ,thigh and legs 5/5 Right side , 5/5 Left side Deep tendon reflexes : Normal Knee Jerk. Normal Ankle Jerk Vertebral body tenderness over Diaz Test positive Lumbar facet Loading Test: positive Right / positive Left Range of motion of the lumbar spine Flexion 30 degrees, extension 10 degrees Straight Leg Raise test: Left/ Right positive at degree Jordi test: positive right / positive left. Severe tenderness over the Sacroiliac joint on the Right / Left sides Gaenslen test: positive bilaterally Seated flexion test: positive bilaterally. Sacral spine : Severe tenderness over the Sacroiliac joint: right side / left side Range of motion: Flexion of the lumbar spine <60 degrees Range of motion: Extension of the lumbar spine <20 degrees Gaenslen's Test positive Mikal's Test positive Jordi test: positive right side / left side Thigh Thrust Test Sacral Thrust Test Imaging: MRI non contrast of the cervical spine from 04/15/23 reviewed Assessment/ Plan : Cervical DDD Recommendation of MELLISA C6-C7 31. May need a series of injections for optimal pain relief. Risks, benefits of procedure discussed and patient verbalized understanding. Admits to aspirin or anti- coagulant use or medical history of diabetes. Protocol for discontinuation/ continuation of medications melecio procedure discussed. Minimal anesthesia provided, if clinically indicated, consisting of Versed and Fentanyl. All questions answered. I have spent greater than 30 minutes on patient care today. Dr Botello was available by phone for the evaluation of this patient. The time was used to review the medical records including relevant urine studies and Prescription history (MAPs), review of the available imaging, evaluation and examination of the patient, coordination of care with the medical staff and if applicable referring physicians, as well as creation of the medical record PQRS Narrative: Smoking Status Former smoker Home Medications: Ambulatory Orders LORazepam [Lorazepam] 0.5 mg PO TID 05/28/14 Levothyroxine Sodium [Synthroid] 50 mcg PO DAILY 05/28/14 Terazosin [Hytrin] 4 mg PO HS 05/28/14 Acetaminophen [Tylenol Extra Strength] 1,000 mg PO BID PRN 10/12/22 Esomeprazole Magnesium [NexIUM 24Hr] 20 mg PO DAILY PRN 10/12/22 Sertraline [Zoloft] 125 mg PO DAILY 10/12/22 amLODIPine [Norvasc] 5 mg PO DAILY 10/12/22 Controlled Substance Measures - Controlled Substance Measures Is patient prescribed a controlled substance at discharge?: No
== END ==
LOC: PNWHC3 13:01
PROVIDERS: ATTEND Specialist
DX: M50.322 Other cervical disc degeneration at C5-C6 level (principal); M50.323 Other cervical disc degeneration at C6-C7 level; M47.22 Other spondylosis with radiculopathy, cervical region; M48.02 Spinal stenosis, cervical region; M19.90 Unspecified osteoarthritis, unspecified site; K21.9 Gastro-esophageal reflux disease without esophagitis; I10 Essential (primary) hypertension; N40.0 Benign prostatic hyperplasia without lower urinary tract symptoms; E07.9 Disorder of thyroid, unspecified; F32.9 Major depressive disorder, single episode, unspecified; F41.9 Anxiety disorder, unspecified; K57.92 Diverticulitis of intestine, part unspecified, without perforation or abscess without bleeding; Z85.038 Personal history of other malignant neoplasm of large intestine; Z79.890 Hormone replacement therapy; Z87.891 Personal history of nicotine dependence; Z88.0 Allergy status to penicillin
CPT/HCPCS: 99211

== ENCOUNTER 2023-08-23 11:04 | Day surgery (SDC) | payer MEDICARE ==
[2023-08-17 16:15] VITALS: BMI 28.1
[~2023-08-23 11:04] MED LIST changes: -LIDOCAINE 1% (10MG/ML) FOR IV START INTRADERMA PRN
[2023-08-23 11:41] VITALS: RESP 16; TEMP 97.6
[2023-08-23] MEDS ORDERED: DEXAMETHASONE SOD PHOSPHATE 10 MG/ML 1 ML VIAL ONE (11:45)
[2023-08-23] MEDS ORDERED: IOPAMIDOL M200 10 ML VIAL ONE (11:45)
--- NOTE | 2023-08-23 12:00 | P.PCN ---
Date of Procedure: 08/23/23 Description of Procedure: Pre- and Post-operative Diagnosis: Cervical radiculopathy, and cervical degenerative disc disease Procedure: C6-C7 Inter-Laminar Cervical Epidural Steroid Injection under biplanar fluoroscopy Surgeon: Jermain Jaramillo Anesthesia: Local: 1% Lidocaine, IV sedation : None Complications: None. Estimated blood loss: None Specimens removed: None Fluoroscopic image: saved to electronic medical records. Indications for Procedure: The patient has been suffering from neck pain and pain radiating to the upper extremity . Inadequate pain control with pharmacologic regimen. An inter-laminar approach cervical epidural steroid injection was scheduled for the patient. Procedure and Findings: The patient was seen and examined in the holding area. The written informed consent was obtained after explaining the risks, benefits, alternatives of the procedure to the patient. The patient was brought to the procedure room and was placed in the prone position on the operating table. A pillow was placed under the upper chest. Standard anesthesia monitoring was done through out the procedure. Timeout was completed. The skin preparation was done with ChloraPrep 1 and draping was done in usual sterile fashion. Sterile technique was observed throughout the procedure. Under fluoroscopic guidance, the C6-C7 inter-laminar space was identified. 3 ml of 1% Lidocaine was injected with a 25 gauge needle to achieve adequate local anesthesia of the skin and subcutaneous tissue. A 20 gauge, 3.5 inch Tuohy type epidural needle was placed and gradually advanced up to the epidural space using loss of resistance technique and fluoroscopic guidance. Lateral, oblique fluoroscopic views confirm the needle position. No paresthesia was noted. A negative aspiration was confirmed and then 1 ml of Isovue-200 was injected. A good dye spread was seen in the epidural space and it was negative for any intrathecal, intraneural or intravascular spread. A total of 6 ml solution containing 20 mg Dexamethasone, and 4 ml preservative-free Normal Saline was injected slowly with intermittent aspiration. The needle was removed intact, area was cleaned and bandage was applied. Disposition : The patient tolerated the procedure very well. The patient was transferred to the recovery room and remained stable until discharged home. The patient was given detailed discharge instructions for bleeding, infection, increased pain at the injection site, and was advised to seek immediate medical attention should significant side effects develop. The patient will be followed up with our Pain Clinic within 4 weeks for follow-up visit.
--- NOTE | 2023-08-23 12:09 | FL ---
Intraoperative/procedural fluoroscopic services were provided for cervical epidural steroid injection . Total fluoroscopy time is 11.2 seconds with a total of 3 submitted images to PACS. Total DAP 0.0096 1 mGym2. Please see the operative note for further details.
[2023-08-23 12:15] VITALS: BP 139/73; PULSE 76
== END 2023-08-23 12:22 | disposition home or self-care (01) ==
LOC: ORPAIN 11:04
DX: M50.123 Cervical disc disorder at C6-C7 level with radiculopathy (principal); K21.9 Gastro-esophageal reflux disease without esophagitis; I10 Essential (primary) hypertension; E03.9 Hypothyroidism, unspecified; Z79.899 Other long term (current) drug therapy; Z98.890 Other specified postprocedural states; Z79.890 Hormone replacement therapy; Z88.0 Allergy status to penicillin
CPT/HCPCS: 62321; J1100; Q9966

== ENCOUNTER → 2023-12-21 | Outpatient (CLI) | payer MEDICARE ==
[2023-12-21 10:13] VITALS: BP 142/88; PULSE 92; RESP 15; TEMP 98.9
--- NOTE | 2023-12-21 14:59 | P.PAINPG ---
PQRS Measure Charge Sheet Comment: HISTORY OF PRESENT ILLNESS: A 73 yr old male w at side presents today w severe and chronic neck pain x 2 yrs secondary to DDD, spondylosis and facet arthropathy without myelopathy for evaluation s/p MELLISA C6-C7 #2. Pt states he experienced 80 % pain relief x 3 wks s/p procedure. Pt states pain level is provoked at 6 /10 in intensity, constant, localized in the lower cervical spine, sharp in character w shooting pain towards the BUEs. Pain is alleviated by PT x 6 wks in 2021, chiropractic treatments weekly x 6 wks in 2021, massage therapy x 1 visit but was painful, physician guided stretches and exercises daily since Jun 2022, heat, topical, repositioning and rest. Pain is provoked by hyperextension, lifting. Oswestry axial pain score at 8. Interventional procedures include MELLISA C6-C7 x2 Medications include DENIES REVIEW OF ORGAN SYSTEMS: CONSTITUTIONAL: No fevers or chills. No recent weight loss. NEUROLOGICAL: + numbness and tingling along the distal extremities. No seizure disorders or headaches. MUSCULOSKELETAL: + pain PSYCHIATRIC: Denies current depression or suicidal thoughts. Physical Examinations : Constitutional : Cooperative , not in acute distress . Neurologic : Cranial nerve II to XII intact. No focal neurological deficits. Psychiatric : alert & oriented x 3. Matching mood & appropriate affect. Judgment & insight intact. Musculoskeletal : Cervical Spine Motor strength in the deltoid and biceps: Normal right side. Normal Left side Motor strength biceps and the wrist extensors: Normal right side . Normal left side Motor strength in the triceps muscle: Normal right side. Normal left side Deep tendon reflexes: Normal at the biceps. Normal at Brachioradialis. Normal at triceps Vertebral body tenderness to deep palpation over C6 Cervical facet loading test: positive bilaterally over BL C6-C7 Spurling test: positive bilaterally Neck distraction test: positive bilaterally Amanda sign: positive bilaterally Lumbar spine Motor strength lower extremities ,thigh and legs 5/5 Right side , 5/5 Left side Deep tendon reflexes : Normal Knee Jerk. Normal Ankle Jerk Vertebral body tenderness over Diaz Test positive Lumbar facet Loading Test: positive Right / positive Left Range of motion of the lumbar spine Flexion 30 degrees, extension 10 degrees Straight Leg Raise test: Left/ Right positive at degree Jordi test: positive right / positive left. Severe tenderness over the Sacroiliac joint on the Right / Left sides Isha test: positive bilaterally Seated flexion test: positive bilaterally. Sacral spine : Severe tenderness over the Sacroiliac joint: right side / left side Range of motion: Flexion of the lumbar spine <60 degrees Range of motion: Extension of the lumbar spine <20 degrees Gaenslen's Test positive Mikal's Test positive Jordi test: positive right side / left side Thigh Thrust Test Sacral Thrust Test Imaging: MRI non contrast of the cervical spine from 04/15/23 reviewed Assessment/ Plan : Cervical DDD Recommendation of MELLISA C6-C7 #3. May need a series of injections for optimal pain relief. Risks, benefits of procedure discussed and patient verbalized understanding. Admits to aspirin or anti- coagulant use or medical history of diabetes. Protocol for discontinuation/ continuation of medications melecio procedure discussed. All questions answered. I have spent greater than 30 minutes on patient care today. Dr Botello was available by phone for the evaluation of this patient. The time was used to review the medical records including relevant urine studies and Prescription history (MAPs), review of the available imaging, evaluation and examination of the patient, coordination of care with the medical staff and if applicable referring physicians, as well as creation of the medical record PQRS Narrative: Smoking Status Former smoker Hx Alcohol Use (MH) No Home Medications: Ambulatory Orders LORazepam [Lorazepam] 0.5 mg PO BID PRN 05/28/14 Levothyroxine Sodium [Synthroid] 50 mcg PO QAM 05/28/14 Terazosin [Hytrin] 5 mg PO HS 05/28/14 Acetaminophen [Tylenol Extra Strength] 1,000 mg PO BID PRN 10/12/22 amLODIPine [Norvasc] 5 mg PO QAM 10/12/22 Famotidine [Pepcid] 10 mg PO DAILY PRN 07/20/23 Sertraline [Zoloft] 100 mg PO QAM 07/20/23 buPROPion HCL [Wellbutrin XL] 150 mg PO QAM 07/20/23 Controlled Substance Measures - Controlled Substance Measures Is patient prescribed a controlled substance at discharge?: No
== END ==
LOC: PNWHC3 09:38
PROVIDERS: ATTEND Anesthesiology
DX: M50.323 Other cervical disc degeneration at C6-C7 level (principal); Z87.891 Personal history of nicotine dependence; Z88.0 Allergy status to penicillin
CPT/HCPCS: 99211

== ENCOUNTER 2023-12-29 12:24 | Day surgery (SDC) | payer MEDICARE ==
[2023-12-29 12:57] VITALS: RESP 16; TEMP 97.1
[2023-12-29] MEDS ORDERED: DEXAMETHASONE SOD PHOSPHATE 10 MG/ML 1 ML VIAL ONE (13:51)
[2023-12-29] MEDS ORDERED: ROPIVACAINE 5MG/ML 20ML VIAL ONE (13:51)
[2023-12-29] MEDS ORDERED: IOPAMIDOL M200 10 ML VIAL ONE (13:51)
--- NOTE | 2023-12-29 14:13 | P.PCN ---
Description of Procedure: PROCEDURE 1. Injection of radio contrast material into cervical epidural space, cervical epidurogram, interpretation of cervical epidurogram, Cervical epidural steroid injection under fluoroscopic guidance, C6-7 (fluoroscopy images available in the radiology department ) 2. Cervical epidurogram. PREOPERATIVE DIAGNOSIS: 1- Cervical Degenerative Disc Diseases 2- Cervical radiculopathy., 3-cervical spondylosis with cervical Facet arthropathy without myelopathy.4-cervical spinal stenosis POSTOPERATIVE DIAGNOSIS: : 1- Cervical Degenerative Disc Diseases , 2- Cervical radiculopathy. 3-,cervical spondylosis with cervical Facet arthropathy without myelopathy. 4-cervical spinal stenosis ANESTHESIA: Local anesthetics infiltration. In the OR continuous pulse ox, EKG, blood pressure and verbal communication was maintained. EBL : None PROCEDURE INDICATION: The patient with neck pain and radiculitis unresponsive to conservative treatment consents for procedure. Discussed the procedure, alternatives and possible complications which may include increased pain, infection, bleeding, nerve damage, paralysis all of which could be permanent. Patient understands and all questions were answered. PROCEDURE DESCRIPTION : After getting consent patient was taken to the OR , positioned in prone position and time out was completed. A pillow was placed under the patients chest to increase the cervical interlaminar space. The cervical area was prepped and draped in the usual sterile fashion. Using anterior-posterior fluoroscopy, interlaminar space was identified and the skin over this site was marked and then infiltrated with 1% lidocaine subcutaneously. Subsequently, a 20-gauge 3-1/2-inch Tuohy epidural needle was inserted and advanced toward the epidural space with the loss of resistance technique using a syringe filled with preservative-free normal saline and guided by AP and lateral fluoroscopy. Negative CSF, negative blood, negative paresthesia. The correct needle position in the epidural space was verified with the injection of 2 mL of the water soluble contrast dye Isovue-200 and observing an excellent epidurogram with the epidural spread of the dye, after repeat negative aspiration 3 mL solution was injected which consists of 1 mL of preservative-free normal saline mixed with 2 mL of 20 mg dexamethasone and a washout of epidurogram was seen. Needle was withdrawn intact, skin was cleansed, and bandages were applied. Disposition: Patient tolerated the procedure well. No complication. Patient was placed in supine position and transferred to the recovery room area in stable condition and there was no evidence of upper or lower extremity motor or sensory deficit after the procedure patient was discharged from recovery room after discharge criteria met and home discharge instructions was given by the staff and patient will follow with the pain clinic in 2-4 weeks
[2023-12-29 14:32] VITALS: BP 138/81; PULSE 78
--- NOTE | 2023-12-29 14:43 | FL ---
EXAMINATION TYPE: FL guided pain mgmt statistic DATE OF EXAM: 12/29/2023 FLUOROSCOPY Fluoroscopy time of 11 seconds was used during cervical epidural steroid injection. 2 image/s docume nt/s the procedure. [id number] mGycm2 DAP dose
== END 2023-12-29 14:31 | disposition home or self-care (01) ==
LOC: ORPAIN 12:24
PROVIDERS: ATTEND Pain Medicine Interventional Pain Medicine
DX: M50.123 Cervical disc disorder at C6-C7 level with radiculopathy (principal); M47.22 Other spondylosis with radiculopathy, cervical region; M48.02 Spinal stenosis, cervical region; Z88.0 Allergy status to penicillin
CPT/HCPCS: 62321; J1100; Q9966; J2795

== ENCOUNTER → 2024-01-11 | Outpatient (CLI) | payer MEDICARE ==
[2024-01-11 09:55] VITALS: BP 132/77; PULSE 89; RESP 16; TEMP 98.7
--- NOTE | 2024-01-11 14:27 | P.PAINPG ---
PQRS Measure Charge Sheet Comment: HISTORY OF PRESENT ILLNESS: A 73 yr old male w at side presents today w severe and chronic neck pain x 2 yrs secondary to DDD, spondylosis and facet arthropathy without myelopathy for evaluation s/p MELLISA C6-C7 #3. Pt states he experienced 90 % pain relief x 2 wks s/p procedure. Pt states pain level is provoked at 1 /10 in intensity, constant, localized in the lower cervical spine, sharp in character w shooting pain towards the BUEs. Pain is alleviated by PT x 6 wks in 2021, chiropractic treatments weekly x 6 wks in 2021, massage therapy x 1 visit but was painful, physician guided stretches and exercises daily since Jun 2022, heat, topical, repositioning and rest. Pain is provoked by hyperextension, lifting. Cervical disability score at 6. Interventional procedures include MELLISA C6-C7 x3 Medications include DENIES REVIEW OF ORGAN SYSTEMS: CONSTITUTIONAL: No fevers or chills. No recent weight loss. NEUROLOGICAL: + numbness and tingling along the distal extremities. No seizure disorders or headaches. MUSCULOSKELETAL: + pain PSYCHIATRIC: Denies current depression or suicidal thoughts. Physical Examinations : Constitutional : Cooperative , not in acute distress . Neurologic : Cranial nerve II to XII intact. No focal neurological deficits. Psychiatric : alert & oriented x 3. Matching mood & appropriate affect. Judgment & insight intact. Musculoskeletal : Cervical Spine Motor strength in the deltoid and biceps: Normal right side. Normal Left side Motor strength biceps and the wrist extensors: Normal right side . Normal left side Motor strength in the triceps muscle: Normal right side. Normal left side Deep tendon reflexes: Normal at the biceps. Normal at Brachioradialis. Normal at triceps Vertebral body tenderness to deep palpation over C6 Cervical facet loading test: positive bilaterally Spurling test: positive bilaterally Neck distraction test: positive bilaterally Amanda sign: positive bilaterally Lumbar spine Motor strength lower extremities ,thigh and legs 5/5 Right side , 5/5 Left side Deep tendon reflexes : Normal Knee Jerk. Normal Ankle Jerk Vertebral body tenderness over Diaz Test positive Lumbar facet Loading Test: positive Right / positive Left Range of motion of the lumbar spine Flexion 30 degrees, extension 10 degrees Straight Leg Raise test: Left/ Right positive at degree Jordi test: positive right / positive left. Severe tenderness over the Sacroiliac joint on the Right / Left sides Gaenslen test: positive bilaterally Seated flexion test: positive bilaterally. Sacral spine : Severe tenderness over the Sacroiliac joint: right side / left side Range of motion: Flexion of the lumbar spine <60 degrees Range of motion: Extension of the lumbar spine <20 degrees Gaenslen's Test positive Mikal's Test positive Jordi test: positive right side / left side Thigh Thrust Test Sacral Thrust Test Imaging: MRI non contrast of the cervical spine from 04/15/23 reviewed Assessment/ Plan : Cervical DDD Will manage residual pain and may RTC on an as needed basis. All questions answered. I have spent greater than 30 minutes on patient care today. Dr Botello was available by phone for the evaluation of this patient. The time was used to review the medical records including relevant urine studies and Prescription history (MAPs), review of the available imaging, evaluation and examination of the patient, coordination of care with the medical staff and if applicable referring physicians, as well as creation of the medical record PQRS Narrative: Smoking Status Former smoker Hx Alcohol Use (MH) No Home Medications: Ambulatory Orders LORazepam [Lorazepam] 0.5 mg PO BID PRN 05/28/14 Levothyroxine Sodium [Synthroid] 50 mcg PO QAM 05/28/14 Terazosin [Hytrin] 5 mg PO HS 05/28/14 Acetaminophen [Tylenol Extra Strength] 1,000 mg PO BID PRN 10/12/22 amLODIPine [Norvasc] 5 mg PO QAM 10/12/22 Famotidine [Pepcid] 10 mg PO DAILY PRN 07/20/23 Sertraline [Zoloft] 100 mg PO QAM 07/20/23 buPROPion HCL [Wellbutrin XL] 150 mg PO QAM 07/20/23 Tamsulosin [Flomax] 0.4 mg PO DAILY 12/27/23 Controlled Substance Measures - Controlled Substance Measures Is patient prescribed a controlled substance at discharge?: No
== END ==
LOC: PNWHC3 09:03
PROVIDERS: ATTEND Specialist
DX: M50.322 Other cervical disc degeneration at C5-C6 level (principal); M47.812 Spondylosis without myelopathy or radiculopathy, cervical region; Z87.891 Personal history of nicotine dependence; Z88.0 Allergy status to penicillin
CPT/HCPCS: 99211